=== PATIENT | female | born 1970 | race African-American/Black ===

== ENCOUNTER 2019-01-30 15:07 | Outpatient (CLI) | payer BC, OTHER ==
--- NOTE | 2019-01-30 15:29 | MMO ---
Bilateral MAMMO Bilat Screen [facility]. CLINICAL HISTORY: Patient is 48 years old and is seen for screening. The patient has the following family history of breast cancer: maternal grandmother, at age 83. The patient has no personal history of cancer. The patient has a history of Breast reduction in 2017. VIEWS: The views performed were: bilateral craniocaudal with tomosynthesis and bilateral mediolateral oblique with tomosynthesis. FILMS COMPARED: The present examination has been compared to prior imaging studies performed at [facility] on 02/24/2012 and 06/26/2014. MAMMOGRAM FINDINGS: The breasts are heterogeneously dense, which could obscure a lesion on mammography. There are no suspicious masses, suspicious calcifications, or new areas of architectural distortion. IMPRESSION: THERE IS NO MAMMOGRAPHIC EVIDENCE OF MALIGNANCY. A ROUTINE FOLLOW-UP MAMMOGRAM IN 1 YEAR IS RECOMMENDED. THE RESULTS OF THIS EXAM WERE SENT TO THE PATIENT. ACR BI-RADS Category 1 - Negative MAMMOGRAPHY NOTE: 1. A negative mammogram report should not delay a biopsy if a dominant of clinically suspicious mass is present. 2. Approximately 10% to 15% of breast cancers are not detected by mammography. 3. Adenosis and dense breasts may obscure an underlying neoplasm.
== END 2019-01-30 15:08 | disposition home or self-care (01) ==
LOC: BICMAMMO 15:07
PROVIDERS: ATTEND Family Medicine
DX: Z12.31 Encounter for screening mammogram for malignant neoplasm of breast (principal); Z80.3 Family history of malignant neoplasm of breast
CPT/HCPCS: 77063; 77067

== ENCOUNTER 2019-02-27 14:22 | Emergency (ER) | payer BC, OTHER ==
--- NOTE | 2019-02-27 16:02 | CT ---
CT LUMBAR SPINE WITHOUT CONTRAST: HISTORY: Trauma, right lower back pain FINDINGS: No fracture or subluxation is seen. There are mild degenerative changes in the lumbar spine. No signi ficant disc herniation, central canal stenosis or neural foraminal stenosis is seen.
[2019-02-27] MEDS ORDERED: Fentanyl 100 MCG/2 ML VIAL ONE (16:08)
[2019-02-27] MEDS ORDERED: Ketorolac Tromethamine 30 MG/ML VIAL ONE (16:08)
[2019-02-27] MEDS ORDERED: Lorazepam 2 MG/ML VIAL ONE (16:08)
[2019-02-27] MEDS ORDERED: Dexamethasone 10 MG/ML VIAL ONE (16:35)
== END 2019-02-27 17:42 | disposition home or self-care (01) ==
LOC: ERS 14:22
DX: M54.41 Lumbago with sciatica, right side (principal)
CPT/HCPCS: 72131; 96372; J1100; J1885; J2060; J3010